=== PATIENT | female | born 1985 | race African-American/Black ===

== ENCOUNTER 2019-08-20 20:36 | Emergency (ER) | payer SELFPAY ==
[2019-08-20 20:44] VITALS: BP 133/70; PULSE 58; TEMP 98.5; BMI 37.0
--- NOTE | 2019-08-20 22:46 | PDOC ---
History of Present Illness - General Chief Complaint: HIV Testing Stated Complaint: HIV TESTING Time Seen by Provider: 08/20/19 22:04 History Source: Patient Exam Limitations: Clinical Condition - History of Present Illness Initial Comments: 08/20/19 22:44 Patient with no significant past medical history presented with partner for STD testing as they just started dating. Denies any symptoms Is this a multiple visit Asthma Patient?: No Past History - Past Medical History Allergies/Adverse Reactions: Allergies Allergy/AdvReac Type Severity Reaction Status Date / Time No Known Allergies Allergy Verified 08/20/19 20:44 - Psycho Social/Smoking Cessation Hx Smoking History: Never smoked Hx Alcohol Use: No Drug/Substance Use Hx: No Review of Systems - Review of Systems Able to Perform ROS?: Yes Is the patient limited [place] proficient: No Constitutional: No: Fever, Malaise, Weakness HEENTM: No: Symptoms Reported Respiratory: No: Symptoms reported Cardiac (ROS): No: Symptoms Reported ABD/GI: No: Symptoms Reported, Nausea, Vomiting Integumentary: No: Symptoms Reported, Rash Neurological: No: Symptoms reported All Other Systems: Reviewed and Negative *Physical Exam - Vital Signs Last Vital Signs Temp Pulse Resp BP Pulse Ox 98.5 F 58 L 18 133/70 99 08/20/19 20:41 08/20/19 20:41 08/20/19 20:41 08/20/19 20:41 08/20/19 20:41 - Physical Exam General Appearance: Yes: Nourished, Appropriately Dressed. No: Apparent Distress HEENT: positive: Normal ENT Inspection Respiratory/Chest: negative: Respiratory Distress, Accessory Muscle Use Musculoskeletal: positive: Normal Inspection Extremity: positive: Normal Inspection Integumentary: positive: Normal Color Neurologic: positive: Fully Oriented, Alert, Normal Mood/Affect, Normal Response Medical Decision Making - Medical Decision Making 08/20/19 22:44 Patient with no significant past medical history presented with partner for STD testing as they just started dating. Denies any symptoms HIV test, GC and chlamydia tests ordered. Syphilis test ordered 08/20/19 23:35 HIV and RPR negative. GC/CHL pending and pt will be contacted with results. Patient stable for discharge Discharge - Discharge Information Problems reviewed: Yes Clinical Impression/Diagnosis: Screening examination for sexually transmitted disease Condition: Stable Disposition: HOME - Admission No - Follow up/Referral - Patient Discharge Instructions Patient Printed Discharge Instructions: Facts About Sexually Transmitted Infections, How to Detect and Treat STDs Additional Instructions: Your HIV test and syphilis is negative. You will be contacted with the rest of the lab results which will be available in a few days - Post Discharge Activity
== END 2019-08-20 23:50 | disposition home or self-care (01) ==
LOC: JERFT 20:36
DX: Z11.3 Encounter for screening for infections with a predominantly sexual mode of transmission (principal)
CPT/HCPCS: 36415; 86593; 87389; 87491; 87591; 99281-25